=== PATIENT | female | born 1975 | race Caucasian/White ===

== ENCOUNTER → 2024-01-08 | Outpatient (CLI) | payer BC, SELFPAY ==
--- NOTE | 2024-01-08 15:07 | NEURO ---
NCS and/or EMG Patient Report Ordering Doctor: Jaguar Grant DATE OF SERVICE: 01/08/24 Clinical Summary: 48 year old female patient with pain and numbness/tingling in the lateral region of the right hand. Nerve Conduction Studies Summary: The right median-D2 SNAP distal latency was prolonged. The right median motor conduction velocity was reduced in the forearm segment. Needle Examination Summary: Needle examination of select muscles of the right upper extremity was normal. Impression: There is electrodiagnostic evidence of the following - 1) Mild, right median mononeuropathy at the wrist (carpal tunnel syndrome), with sensory fiber demyelination. Multi Select Codes Neurology Neurology Interp Codes: 23388-41 Musc test done w/n test comp (interp) (1) and 78425-51 Nrv cndj test 7-8 studies (interp)
== END | disposition home or self-care (01) ==
LOC: PSN 14:09
PROVIDERS: PCP Internal Medicine; Referring Provider Physician Assistant; Visit Provider Physician Assistant
DX: M25.531 Pain in right wrist (principal); R20.2 Paresthesia of skin; G56.01 Carpal tunnel syndrome, right upper limb
CPT/HCPCS: 95886; 95910